=== PATIENT | male | born 1930 | race Caucasian/White ===

== ENCOUNTER → 2018-06-27 | Outpatient (CLI) | payer OTHER ==
[~2018-06-27] MED LIST: ASPI-621 PO; ATOR40TA78 PO; LEVO100T5 PO; METO25TA35 PO; RANI150T23 PO; allergy medication
== END | disposition home or self-care (01) ==
LOC: EDSEX → MERGE 06-11 15:00 → EDSEX 06-11 15:00 → CFH 14:29
PROVIDERS: ATTEND Internal Medicine Cardiovascular Disease
DX: I08.0 Rheumatic disorders of both mitral and aortic valves (principal); I11.9 Hypertensive heart disease without heart failure; I25.10 Atherosclerotic heart disease of native coronary artery without angina pectoris; E78.5 Hyperlipidemia, unspecified; Z95.1 Presence of aortocoronary bypass graft; Z87.891 Personal history of nicotine dependence; Z85.46 Personal history of malignant neoplasm of prostate
CPT/HCPCS: 93306